=== PATIENT | male | born 1940 | race Caucasian/White ===

== ENCOUNTER 2017-12-26 09:33 | Observation (INO) | payer OTHER ==
[~2017-12-26] VITALS: Ht 175.3 cm; Wt 75.0 kg
[2017-12-26 10:03] LABS: BASOPHILS % (AUTO) 0.2 % (0-1); EOSINOPHILS # (AUTO) 0.3 X10'3 (0-0.9); EOSINOPHILS % (AUTO) 3.7 % (0-6); HEMATOCRIT 43.4 % (42.0-52.0); HEMOGLOBIN 15.1 g/dl (14.0-17.9); LYMPHOCYTES # (AUTO) 0.8 X10'3 (1.1-4.8); LYMPHOCYTES % (AUTO) 10.5 % (21-51); MEAN CORPUSCULAR HGB CONC 34.8 % (33.0-36.5); MEAN CORPUSCULAR VOLUME 94.8 FL (78-98); MEAN PLATELET VOLUME 10.6 FL (7.4-10.4); MONOCYTES # (AUTO) 0.4 X10'3 (0-0.9); MONOCYTES % (AUTO) 5.8 % (2-12); NEUTROPHILS # (AUTO) 5.7 X10'3 (1.8-7.7); NEUTROPHILS % (AUTO) 79.8 % (42-75); PLATELET COUNT 214 X10'3 (140-440); RED BLOOD COUNT 4.58 X10'6 (4.70-6.10); RED CELL DISTRIBUTION WIDTH 13.9 % (11.5-14.5); WHITE BLOOD COUNT 7.2 X10'3 (4.5-11.0)
[2017-12-26 10:14] LABS: GIANT PLATELET FEW; LARGE PLATELETS FEW; PARTIAL THROMBOPLASTIN TIME 29 SECONDS (22-32); PLATELET ESTIMATE NORMAL; PROTHROMBIN TIME 10.7 SECONDS (9.0-12.0)
[2017-12-26 10:18] LABS: ALANINE AMINOTRANSFERASE 21 U/L (12-78); ALBUMIN 4.1 G/DL (3.4-5.0); ALBUMIN/GLOBULIN RATIO 1.4 (1.1-1.5); ALKALINE PHOSPHATASE 75 IU/L (46-116); ANION GAP 10 (8-16); ASPARTATE AMINO TRANSFERASE 11 U/L (10-37); BILIRUBIN,TOTAL 1.3 MG/DL (0.1-1.0); BLOOD UREA NITROGEN 17 MG/DL (7-18); BUN/CREATININE RATIO 16.5 (5.4-32.0); CALCIUM 8.9 MG/DL (8.5-10.1); CHLORIDE 105 MMOL/L (99-107); CREATININE 1.03 MG/DL (0.60-1.10); GLUCOSE 97 MG/DL (70-104); POTASSIUM 4.2 MMOL/L (3.5-5.1); SODIUM 143 MMOL/L (135-145); TOTAL CARBON DIOXIDE 27.6 MMOL/L (24-32); TOTAL PROTEIN 7.1 G/DL (6.4-8.2); eGFR 70 ML/MIN
[2017-12-26] MEDS ORDERED: NO HOME MEDS (10:22)
[2017-12-26] MEDS ORDERED: ondansetron/PF 4mg/2ml inj IV PRN (11:15)
[2017-12-26] MEDS ORDERED: acetaminophen 325mg tablet PO PRN (11:15)
[2017-12-26] MEDS ORDERED: magnesium hydroxide 30ml (MOM) UD suspension PO PRN (11:15)
[2017-12-26] MEDS ORDERED: mag hydrox/Alum hydrox/simeth 30ml oral suspension PO PRN (11:15)
[2017-12-26] MEDS ORDERED: morphine 4 MG/ML inj SYRINge IV PRN (11:15)
[2017-12-26 12:21] LABS: D-DIMER 0.43 MG/L FEU (0-0.50)
[2017-12-26] MEDS ORDERED: CAFFEINE CITRATE 60 MG/3 ML injection vial IV PRN (12:30)
[2017-12-26] MEDS ORDERED: nitroGLYCERIN 0.4mg SUBLingual tab SL PRN ×2 (12:30)
[2017-12-26] MEDS ORDERED: metoprolol tartrate 1mg/ml inj IV PRN (12:30)
[2017-12-26] MEDS ORDERED: regadenoson 0.4mg/5ml syringe IV ONE (12:30)
[2017-12-26 12:33] LABS: MAGNESIUM 2.2 MG/DL (1.5-2.4)
[2017-12-26 13:05] LABS: CHOLESTEROL 208 MG/DL (0-200); HDL CHOLESTEROL 52 MG/DL (35-60); LDL CHOLESTEROL 141 MG/DL (50-100); TRIGLYCERIDES 74 MG/DL (20-135)
[2017-12-26 14:05] VITALS: BP 167/61
[2017-12-26 18:00] VITALS: BP 179/85
[2017-12-26 22:00] VITALS: BP 144/71
[2017-12-27] VITALS (14 sets, daily range): BP systolic 108–180; BP diastolic 50–78
[2017-12-27] MEDS ORDERED: amLODIPine 5mg tablet PO ONE (03:45)
[2017-12-27] MEDS ORDERED: cloNIDine 0.1 mg tablet PO PRN (03:50)
[2017-12-27] MEDS: atorvastatin 10mg tablet PO SCH (07:41)
[2017-12-27] MEDS: aspirin 325mg tablet PO SCH (07:41)
[2017-12-27] MEDS: cloNIDine 0.1 mg tablet PO PRN (07:42)
[2017-12-27] MEDS ORDERED: CAFFEINE CITRATE 60 MG/3 ML injection vial IV ONE (09:43)
[2017-12-27] MEDS ORDERED: regadenoson 0.4mg/5ml syringe IV ONE (09:43)
[2017-12-27] MEDS: LORazepam 0.5 MG tablet PO PRN (20:50)
[2017-12-28] VITALS (14 sets, daily range): BP systolic 120–165; BP diastolic 45–106
[2017-12-28] MEDS: cloNIDine 0.1 mg tablet PO PRN (05:11)
[2017-12-28] MEDS: atorvastatin 10mg tablet PO SCH (07:39)
[2017-12-28] MEDS: aspirin 325mg tablet PO SCH (07:39)
[2017-12-28] MEDS ORDERED: amLODIPine 5mg tablet PO SCH (08:00)
[2017-12-28] MEDS ORDERED: normal saline 1000ml 1,000 ML IV SCH (08:00)
[2017-12-28 10:19] LABS: BASOPHILS % (AUTO) 0.3 % (0-1); EOSINOPHILS # (AUTO) 0.3 X10'3 (0-0.9); EOSINOPHILS % (AUTO) 4.8 % (0-6); HEMATOCRIT 42.3 % (42.0-52.0); HEMOGLOBIN 14.5 g/dl (14.0-17.9); LYMPHOCYTES # (AUTO) 0.8 X10'3 (1.1-4.8); LYMPHOCYTES % (AUTO) 13.9 % (21-51); MEAN CORPUSCULAR HEMOGLOBIN 32.8 PG (27.0-31.0); MEAN CORPUSCULAR HGB CONC 34.3 % (33.0-36.5); MEAN CORPUSCULAR VOLUME 95.5 FL (78-98); MONOCYTES # (AUTO) 0.4 X10'3 (0-0.9); MONOCYTES % (AUTO) 6.9 % (2-12); NEUTROPHILS # (AUTO) 4.5 X10'3 (1.8-7.7); NEUTROPHILS % (AUTO) 74.1 % (42-75); PLATELET COUNT 194 X10'3 (140-440); RED BLOOD COUNT 4.43 X10'6 (4.70-6.10); RED CELL DISTRIBUTION WIDTH 13.4 % (11.5-14.5); WHITE BLOOD COUNT 6.1 X10'3 (4.5-11.0)
[2017-12-28 10:30] LABS: ALBUMIN 3.6 G/DL (3.4-5.0); ANION GAP 6 (8-16); BLOOD UREA NITROGEN 20 MG/DL (7-18); BUN/CREATININE RATIO 20.2 (5.4-32.0); CALCIUM 8.7 MG/DL (8.5-10.1); CHLORIDE 106 MMOL/L (99-107); CREATININE 0.99 MG/DL (0.60-1.10); GLUCOSE 97 MG/DL (70-104); LARGE PLATELETS FEW; PLATELET ESTIMATE NORMAL; POTASSIUM 4.3 MMOL/L (3.5-5.1); SODIUM 141 MMOL/L (135-145); TOTAL CARBON DIOXIDE 29.4 MMOL/L (24-32); eGFR 73 ML/MIN
[2017-12-28] MEDS ORDERED: LIDOcaine 1% 30ml preserv. free vial ONE (11:17)
[2017-12-28] MEDS ORDERED: iohexol 350 MG/ML 50ML vial IV ONE ×2 (11:17→11:48)
[2017-12-28] MEDS ORDERED: iohexol 350MG/ML 100ml bottle IV ONE (11:17)
[2017-12-28] MEDS ORDERED: diphenhydrAMINE 50 mg/ml inj ONE (11:37)
[2017-12-28] MEDS ORDERED: midazolam 2 mg/2 ml injection ONE (11:38)
[2017-12-28] MEDS ORDERED: fentaNYL/PF 50MCG/1 ML 2ML syringe ONE (11:38)
[2017-12-28] MEDS ORDERED: nitroGLYCERIN-Tridil 50MG/D5W 250 ML IV ONE (12:01)
[2017-12-28] MEDS ORDERED: hydrALAZINE 20mg/ml inj. IV ONE (12:01)
[2017-12-28 12:35] LABS: ISTAT Hct MIX 38 %PCV (42-52); ISTAT O2 SATURATION MIX VENOUS 73 % (60-80); ISTAT SOURCE MIX
[2017-12-28 12:36] LABS: ISTAT HGB ART 12.9 g/dl (14.0-18.0); ISTAT Hct ART 38 %PCV (42-52); ISTAT O2 SATURATION ARTERIAL 99 % (95-98); ISTAT SOURCE ART
[2017-12-28] MEDS ORDERED: proCHLORperazine 10 MG/2 ml inj IV PRN (13:00)
[2017-12-28] MEDS ORDERED: HYDROcodone/acetaminophen 5mg/325mg tablet PO PRN (13:00)
[2017-12-28] MEDS ORDERED: OXAZEpam 15mg capsule PO PRN (13:00)
[2017-12-28] MEDS ORDERED: HYDROcodone/acetaminophen 10/325mg tab PO PRN (13:00)
[2017-12-28] MEDS ORDERED: acetaminophen 325mg tablet PO PRN (13:00)
[2017-12-28] MEDS ORDERED: nitroGLYCERIN 0.4mg SUBLingual tab SL PRN (13:00)
[2017-12-28] MEDS ORDERED: lisinopril 5mg tablet PO SCH (15:00)
[2017-12-28] MEDS: lisinopril 20mg tablet PO SCH (15:15)
[2017-12-28] MEDS: LORazepam 0.5 MG tablet PO PRN (16:59)
[2017-12-28] MEDS: carVEDilol 3.125mg tablet PO SCH (19:30)
[2017-12-29 02:00] VITALS: BP 121/71
[2017-12-29 06:00] VITALS: BP 136/83
[2017-12-29] MEDS: aspirin 325mg tablet PO SCH (08:01)
[2017-12-29] MEDS: carVEDilol 3.125mg tablet PO SCH (08:02)
[2017-12-29] MEDS: lisinopril 20mg tablet PO SCH (08:02)
[2017-12-29] MEDS: atorvastatin 10mg tablet PO SCH (08:02)
[2017-12-29] MEDS: LORazepam 0.5 MG tablet PO PRN (08:15)
[2017-12-29] MEDS ORDERED: spironolactone 25 MG tablet PO SCH (08:30)
[2017-12-29 10:20] VITALS: BP 143/59
[2017-12-29 11:00] VITALS: BP 121/55
[2017-12-29] MEDS ORDERED: LISI-600 PO (12:00)
[2017-12-29] MEDS ORDERED: ATOR10TA PO (12:00)
[2017-12-29] MEDS ORDERED: SPIR25TA PO (12:00)
[2017-12-29] MEDS ORDERED: ASPI-1 PO (12:00)
== END 2017-12-29 13:40 | disposition home or self-care (01) ==
LOC: ER 09:33 → ED HOLD 11:15 → EDBEDREQTM 13:12 → PCU 3S 14:23
PROVIDERS: ADMIT Internal Medicine; ATTEND Internal Medicine
DX: R07.89 Other chest pain (principal); I42.9 Cardiomyopathy, unspecified; I10 Essential (primary) hypertension; E78.5 Hyperlipidemia, unspecified; I49.9 Cardiac arrhythmia, unspecified; I35.1 Nonrheumatic aortic (valve) insufficiency; E78.00 Pure hypercholesterolemia, unspecified; F41.9 Anxiety disorder, unspecified; Z79.82 Long term (current) use of aspirin; Z79.899 Other long term (current) drug therapy; Z82.49 Family history of ischemic heart disease and other diseases of the circulatory system
CPT/HCPCS: 36415; 71045; 78451; 80048; 80053; 80061; 82803; 83735; 84443; 84484; 85014; 85025; 85379; 85610; 85730; 87070; 93005; 93017; 93306; 93460; 93567; 96374; 99285; A6257; A9500; C1760; C1769; C1894; G0378; J0360; J1200; J1644; J2250; J2270; J3010; J3490; J7030; Q9967; 99152; A4620

== ENCOUNTER 2018-06-11 23:42 | Inpatient (IN) | payer OTHER ==
[~2018-06-11] VITALS: Ht 175.3 cm; Wt 65.9 kg
[~2018-06-11 23:42] MED LIST: ASPI-1 PO; ATOR10TA PO; LISI-600 PO; SPIR25TA PO
[2018-06-12 00:12] LABS: ALANINE AMINOTRANSFERASE 30 U/L (12-78); ALBUMIN 4.1 G/DL (3.4-5.0); ALBUMIN/GLOBULIN RATIO 1.4 (1.1-1.5); ALKALINE PHOSPHATASE 76 IU/L (46-116); ANION GAP 9 (8-16); ASPARTATE AMINO TRANSFERASE 12 U/L (10-37); BILIRUBIN,TOTAL 0.9 MG/DL (0.1-1.0); BLOOD UREA NITROGEN 23 MG/DL (7-18); BUN/CREATININE RATIO 12.2 (5.4-32.0); CALCIUM 8.7 MG/DL (8.5-10.1); CHLORIDE 103 MMOL/L (99-107); CREATININE 1.89 MG/DL (0.60-1.10); GLUCOSE 131 MG/DL (70-104); POTASSIUM 4.7 MMOL/L (3.5-5.1); SODIUM 138 MMOL/L (135-145); TOTAL CARBON DIOXIDE 26.3 MMOL/L (24-32); TOTAL PROTEIN 7.1 G/DL (6.4-8.2); eGFR 35 ML/MIN
[2018-06-12 00:27] LABS: PARTIAL THROMBOPLASTIN TIME 25 SECONDS (22-32); PROTHROMBIN TIME 10.3 SECONDS (9.0-12.0)
[2018-06-12 00:30] LABS: BASOPHILS % (AUTO) 0 % (0-1); EOSINOPHILS % (AUTO) 0.2 % (0-6); HEMATOCRIT 34.5 % (42.0-52.0); HEMOGLOBIN 11.6 g/dl (14.0-17.9); LYMPHOCYTES # (AUTO) 0.6 X10'3 (1.1-4.8); LYMPHOCYTES % (AUTO) 8.3 % (21-51); MEAN CORPUSCULAR HEMOGLOBIN 33.1 PG (27.0-31.0); MEAN CORPUSCULAR HGB CONC 33.4 % (33.0-36.5); MEAN CORPUSCULAR VOLUME 98.9 FL (78-98); MEAN PLATELET VOLUME 10.9 FL (7.4-10.4); MONOCYTES # (AUTO) 0.4 X10'3 (0-0.9); MONOCYTES % (AUTO) 4.5 % (2-12); NEUTROPHILS # (AUTO) 6.7 X10'3 (1.8-7.7); PLATELET COUNT 224 X10'3 (140-440); RED BLOOD COUNT 3.49 X10'6 (4.70-6.10); RED CELL DISTRIBUTION WIDTH 13.2 % (11.5-14.5); WHITE BLOOD COUNT 7.7 X10'3 (4.5-11.0)
[2018-06-12] MEDS ORDERED: nitroGLYCERIN 0.4mg/hour patch TD ONE (00:40)
[2018-06-12] MEDS ORDERED: ciprofloxacin 250mg tablet PO ONE (01:00)
[2018-06-12] MEDS ORDERED: mag hydrox/Alum hydrox/simeth 30ml oral suspension PO PRN (01:10)
[2018-06-12] MEDS ORDERED: acetaminophen 325mg tablet PO PRN ×2 (01:10)
[2018-06-12] MEDS ORDERED: morphine 2 MG/ML inj. syringe IV PRN ×2 (01:10)
[2018-06-12] MEDS ORDERED: magnesium Cl slow-release 64mg tablet PO PRN (01:10)
[2018-06-12] MEDS ORDERED: magnesium 4gm in 100ml NS 100 ML IV PRN (01:10)
[2018-06-12] MEDS ORDERED: potassium Cl 40MEQ/NS 500ml 500 ML IV PRN ×2 (01:10)
[2018-06-12] MEDS ORDERED: ondansetron/PF 4mg/2ml inj IV PRN (01:10)
[2018-06-12] MEDS ORDERED: magnesium 1gm/100ml D5W IVPB 100 ML IV PRN (01:10)
[2018-06-12] MEDS ORDERED: magnesium hydroxide 30ml (MOM) UD suspension PO PRN (01:10)
[2018-06-12] MEDS ORDERED: potassium Cl 20 mEq SR tablet PO PRN ×2 (01:10)
[2018-06-12] MEDS ORDERED: mag hydrox/Alum hydrox/simeth 30ml oral suspension PO ONE (01:40)
[2018-06-12] MEDS ORDERED: LIDOcaine Viscous 15ml cup MM ONE (01:40)
[2018-06-12 02:05] VITALS: BP 155/64
[2018-06-12 07:00] VITALS: BP 134/56
[2018-06-12] MEDS ORDERED: enoxaparin 40mg/0.4ml syringe SQ SCH (08:00)
[2018-06-12] MEDS ORDERED: lisinopril 20mg tablet PO SCH (08:00)
[2018-06-12] MEDS ORDERED: K and/or MAG REPLACEMENT MC SCH (08:00)
[2018-06-12] MEDS ORDERED: atorvastatin 10mg tablet PO SCH (08:00)
[2018-06-12] MEDS ORDERED: aspirin 325mg tablet PO SCH (08:30)
[2018-06-12] MEDS ORDERED: spironolactone 25 MG tablet PO SCH (08:30)
[2018-06-12 09:02] VITALS: BP 135/62
[2018-06-12 11:00] VITALS: BP 127/56
[2018-06-12] MEDS ORDERED: PANT-47 PO (13:44)
[2018-06-12] MEDS ORDERED: CARV3.12 PO (13:45)
[2018-06-12] MEDS ORDERED: NITR0.4T48 SL (13:46)
== END 2018-06-12 15:45 | disposition home or self-care (01) | DRG 683 ==
LOC: ER 23:42 → ED HOLD 06-12 01:06 → PCU 3S 06-12 01:55
PROVIDERS: ADMIT Family Medicine; ATTEND Internal Medicine
DX: N17.9 Acute kidney failure, unspecified (principal); I42.9 Cardiomyopathy, unspecified; R07.89 Other chest pain; E78.5 Hyperlipidemia, unspecified; I50.9 Heart failure, unspecified; Z23 Encounter for immunization; Z79.899 Other long term (current) drug therapy; Z79.82 Long term (current) use of aspirin; Z87.891 Personal history of nicotine dependence; Z80.8 Family history of malignant neoplasm of other organs or systems
CPT/HCPCS: 36415; 71045; 80053; 84484; 85025; 85610; 85730; 87070; 93005; 93306; 99285; J1650